=== PATIENT | female | born 1945 | race Caucasian/White ===

== ENCOUNTER 2017-12-14 08:52 | Emergency (ER) | payer OTHER ==
[~2017-12-14] VITALS: Ht 165.1 cm; Wt 120.2 kg
--- NOTE | 2017-12-14 08:52 | NUR ---
PT BIBA AND PLACED IN BED 12.
[2017-12-14 09:02] VITALS: BP 188/91
--- NOTE | 2017-12-14 09:12 | NUR ---
PT BIB EMS FROM [facility] WITH C/O EPITAXIS THIS MORNING; LAST EPISODE ON 12/11/2017 HX; HTN, CHF, A-FIB, GLAUCOMA, OBESITY, ANEMIA, HYPERLIPIDEMIA, GERD RX; LASIX, ASA, SPIRINOLATONE, COREG, TRAMADOL DENIES N/V/D; SKIN IS PINK/WARM/DRY; AAOX4; LUNGS CLEAR BL; HR EVEN AND REGULAR; PT DENIES ANY FEVER, CP, SOB, OR COUGH AT THIS TIME; PATIENT STATES PAIN OF 0/10 AT THIS TIME; VSS; PATIENT POSITIONED FOR COMFORT; HOB ELEVATED; BEDRAILS UP X2; BED DOWN. ER MD MADE AWARE OF PT STATUS.
--- NOTE | 2017-12-14 09:40 | NUR ---
ice pack applied;bleeding has been controlled;will continue to monitor pt.
--- NOTE | 2017-12-14 09:48 | NUR ---
relative at bedside.
[2017-12-14 10:17] LABS: ANION GAP 9.7 (8-16); CARBON DIOXIDE 32.3 mmol/L (21-32); CHLORIDE 106 mmol/L (98-107); CREATININE 1.7 mg/dL (0.6-1.3); GLUCOSE 112 mg/dL (74-106); SODIUM SERUM 144 mmol/L (136-145); UREA NITROGEN, BLOOD 27 mg/dL (7-18)
[2017-12-14 10:23] LABS: PROTHROMBIN TIME 11.3 secs (10.8-13.4)
[2017-12-14 10:34] LABS: ASPARTATE AMINOTRANSFERASE 14 U/L (15-37); TOTAL BILIRUBIN 0.5 mg/dL (0.0-1.0)
[2017-12-14] MEDS ORDERED: cloNIDine 0.1 MG TAB PO ONE (10:35)
[2017-12-14 10:39] LABS: WHITE BLOOD COUNT (AUTO) 6.4 K/uL (4.8-10.8)
[2017-12-14 10:40] LABS: BASOPHILS % (AUTO) 0.6 % (0.0-2.0); EOSINOPHILS # (AUTO) 0.2 K/uL (0-0.4); HEMATOCRIT 32.5 % (36-48); HEMOGLOBIN 10.9 g/dL (12.0-16.0); LYMPHOCYTES # (AUTO) 0.9 K/uL (2.5-16.5); LYMPHOCYTES % (AUTO) 13.6 % (20.5-51.1); MEAN CORPUSCULAR HEMOGLOBIN 32 pg (27-31); MEAN CORPUSCULAR HGB CONC 34 g/dL (33-37); MEAN CORPUSCULAR VOLUME 96 fL (80-94); MONOCYTES # (AUTO) 0.5 K/uL (0.8-1.0); MONOCYTES % (AUTO) 7.4 % (1.7-9.3); NEUTROPHILS # (AUTO) 4.8 K/uL (1.8-7.7); NEUTROPHILS % (AUTO) 75.4 % (42.2-75.2); PLATELET COUNT (AUTO) 182 K/uL (140-450); RED BLOOD CELL COUNT(AUTO) 3.37 MIL/uL (4.20-5.40); RED CELL DISTRIBUTION WIDTH 14.6 % (11.6-13.7)
--- NOTE | 2017-12-14 12:15 | NUR ---
CALLED [facility];SPOKE TO MS TREVINO VALVING MACHINE OPERATOR THAT PT IS FOR DC;THEY SAID THEY DON'T HAVE VEHICLE THAT IS WHEELCHAIR ACCESSIBLE AND IF WE CAN ARRANGE TRANSPORT FOER THE PT;
--- NOTE | 2017-12-14 13:34 | NUR ---
pt resting on bed;nad;will continue to monitor pt;
[2017-12-14 14:48] VITALS: BP 152/83
--- NOTE | 2017-12-14 14:48 | NUR ---
Patient discharged with v/s stable. Written and verbal after care instructions given and explained. Patient alert, oriented and verbalized understanding of instructions. Wheel Chair Assisted with to detention. All questions addressed prior to discharge. ID band removed. Patient advised to follow up with PMD. Rx of given [place] 0.65% nasal spray. Patient educated on indication of medication including possible reaction and side effects. Opportunity to ask questions provided and answered.Transported by Mr hou to [facility];
== END 2017-12-14 14:48 ==
LOC: MED 08:52
DX: R04.0 Epistaxis (principal); I10 Essential (primary) hypertension; K21.9 Gastro-esophageal reflux disease without esophagitis
CPT/HCPCS: 36415; 80053; 85025; 85610; 86886; 86900; 86901; 99284

== ENCOUNTER 2018-07-12 19:24 | Inpatient (IN) | payer OTHER ==
[~2018-07-12] VITALS: Ht 165.1 cm; Wt 133.8 kg
--- NOTE | 2018-07-12 19:24 | NUR ---
PT [facility] BLS. TAKEN TO BED 10
[2018-07-12 19:25] VITALS: BP 192/120
--- NOTE | 2018-07-12 19:28 | NUR ---
Dr. Torres evaluating patient at bedside.
--- NOTE | 2018-07-12 19:30 | NUR ---
PT BIBA FOR SOB STARTING TODAY, PT IS TACHYPNIC AND TACHYCARDIA ON ARRIVAL. RR ARE SHORT, LABORED, BL BS CLEAR . NC APPLIED W/ 3L ON ARRIVAL. PT SPEAKS ONLY A FEW WORDS AT A TIME. PT EXTREMETIES ARE EDMATOUS , +3 PITTING EDEMA TO LEFT HAND AND BL FEET. ER MD AWARE OF PT STATUS WILL CONTINUE W/ ORDERS.
--- NOTE | 2018-07-12 19:38 | NUR ---
RT AT BEDSIDE
[2018-07-12] MEDS ORDERED: CHOL200074 PO (19:56)
[2018-07-12] MEDS ORDERED: SENN8.6T70 PO (19:56)
[2018-07-12] MEDS ORDERED: DEEP SEA (19:56)
[2018-07-12] MEDS ORDERED: TIM.5OS OP (19:56)
[2018-07-12] MEDS ORDERED: CARV6.25 PO (19:56)
[2018-07-12] MEDS ORDERED: FERR325E14 PO (19:56)
[2018-07-12] MEDS ORDERED: LORA10TA19 PO (19:56)
[2018-07-12] MEDS ORDERED: FURO-572 PO (19:56)
[2018-07-12] MEDS ORDERED: DOCU1TAB PO (19:56)
[2018-07-12] MEDS ORDERED: [UNRECOGNIZED DRUG - CODE] TP (19:56)
[2018-07-12] MEDS ORDERED: CALC-1015 PO (19:56)
[2018-07-12] MEDS ORDERED: DEEP SEA SPRAY (19:56)
[2018-07-12] MEDS ORDERED: XALOS OP (19:56)
[2018-07-12] MEDS ORDERED: NAPR-54 PO (19:56)
[2018-07-12] MEDS ORDERED: LACT10SO1 PO (19:56)
[2018-07-12] MEDS ORDERED: ASCO-786 PO (19:56)
[2018-07-12] MEDS ORDERED: ALPOS OP (19:56)
[2018-07-12] MEDS ORDERED: TRAM50TA1 PO (19:56)
[2018-07-12] MEDS ORDERED: DICLOFENAC SODIUM (19:56)
[2018-07-12] MEDS ORDERED: ACET500C86 PO (19:56)
[2018-07-12] MEDS ORDERED: SILV-22 TP (19:56)
[2018-07-12] MEDS ORDERED: AMIO200T5 PO (19:56)
[2018-07-12] MEDS ORDERED: VITA1TAB44 PO (19:56)
[2018-07-12] MEDS ORDERED: FAMO-90 PO (19:56)
--- NOTE | 2018-07-12 20:10 | NUR ---
PLACED PATIENT ON BIPAP 12/6 FIO2-35% DUE TO TACHYPNEA. BS-CRACKLES/CLEAR RR-36BPM HR-108 ABG DONE
[2018-07-12 20:16] LABS: BASOPHILS % (AUTO) 0.3 % (0.0-2.0); EOSINOPHILS # (AUTO) 0.1 K/uL (0-0.4); EOSINOPHILS % (AUTO) 0.9 % (0.0-4.0); HEMATOCRIT 45.9 % (36-48); HEMOGLOBIN 15.2 g/dL (12.0-16.0); LYMPHOCYTES # (AUTO) 0.5 K/uL (2.5-16.5); LYMPHOCYTES % (AUTO) 3.9 % (20.5-51.1); MEAN CORPUSCULAR HEMOGLOBIN 32 pg (27-31); MEAN CORPUSCULAR HGB CONC 33 g/dL (33-37); MEAN CORPUSCULAR VOLUME 95.3 fL (80-94); MONOCYTES # (AUTO) 0.6 K/uL (0.8-1.0); MONOCYTES % (AUTO) 4.5 % (1.7-9.3); NEUTROPHILS # (AUTO) 11.3 K/uL (1.8-7.7); NEUTROPHILS % (AUTO) 90.4 % (42.2-75.2); PLATELET COUNT (AUTO) 183 K/uL (140-450); RED BLOOD CELL COUNT(AUTO) 4.81 MIL/uL (4.20-5.40); RED CELL DISTRIBUTION WIDTH 14.4 % (11.6-13.7); WHITE BLOOD COUNT (AUTO) 12.5 K/uL (4.8-10.8)
--- NOTE | 2018-07-12 20:23 | NUR ---
X-Ray at bedside.
--- NOTE | 2018-07-12 20:32 | NUR ---
PT STATES SHE WANTS TO "GO HOME". SITTING HERSELF UP IN BED, PT INSTRUCTED TO STAY IN BED, CURTAIN OPENED SO STAFF MY SEE PT, WILL CONTINUE TO MONITOR.
[2018-07-12 20:33] LABS: PROTHROMBIN TIME 10.4 secs (10.8-13.4)
[2018-07-12 20:34] LABS: CARBON DIOXIDE 30.5 mmol/L (21-32); CHLORIDE 102 mmol/L (98-107); CREATININE 1.4 mg/dL (0.6-1.3); GLUCOSE 115 mg/dL (74-106); POTASSIUM 4.5 mmol/L (3.5-5.1); SODIUM SERUM 142 mmol/L (136-145); UREA NITROGEN, BLOOD 24 mg/dL (7-18)
[2018-07-12 20:40] LABS: ALBUMIN 3.8 g/dL (3.4-5.0); ASPARTATE AMINOTRANSFERASE 15 U/L (15-37); LIPASE 118 U/L (73-393); TOTAL BILIRUBIN 0.7 mg/dL (0.0-1.0)
--- NOTE | 2018-07-12 21:13 | NUR ---
RT AT BEDSIDE
--- NOTE | 2018-07-12 21:14 | NUR ---
PATIENT REQUESTED BIPAP TO BE TAKEN OFF AND IS ON ROOM AIR AND WANTS TO GO HOME. DR GOMEZ IS AWARE
--- NOTE | 2018-07-12 21:20 | NUR ---
PT NO LONGER ON BI PAP, VSS, NO CHANGE IN RESPIRATORY STATUS.
[2018-07-12] MEDS ORDERED: MORPHINE SULFATE 4 MG/ML SYR IVP ONE (22:40)
--- NOTE | 2018-07-12 23:17 | NUR ---
PT SITTING IN BED, POSITIONED TO COMFORT.
[2018-07-12] MEDS ORDERED: NACL 0.9% 1,000 ML IV ONE (23:45)
[2018-07-12] MEDS ORDERED: LEVOFLOXACIN 750 MG/D5W PREMIX 150 ML IV ONE (23:45)
[2018-07-13] VITALS (7 sets, daily range): BP systolic 98–181; BP diastolic 64–118
--- NOTE | 2018-07-13 00:17 | NUR ---
# 14 FR Urinary catheter inserted utilizing sterile technique. Immediate return of 500 ml YELLOW urine noted. Urine sample collected and sent to lab. Pt tolerated procedure WELL.
[2018-07-13 00:25] LABS: APPEARANCE,URINE CLOUDY (CLEAR); BILIRUBIN,URINE NEGATIVE (NEGATIVE); BLOOD, URINE 2+ (NEGATIVE); COLOR,URINE YELLOW (YELLOW); LEUKOCYTE ESTERASE ,URINE NEGATIVE (NEGATIVE); NITRITE, URINE NEGATIVE (NEGATIVE); UGLUCOSE NEGATIVE (NEGATIVE)
[2018-07-13 00:36] LABS: RBC,URINE 11-20 (MOD) /HPF (0-5); WBC,URINE TOO MANY TO COUNT /HPF (0-5)
--- NOTE | 2018-07-13 00:46 | NUR ---
PT SITTING IN BED , POSITIONED TO COMFORT, NO NEW NEEDS AT THIS TIME.
--- NOTE | 2018-07-13 01:42 | NUR ---
PT REPOSITIONED IN BED, NO NEW NEEDS AT THIS TIME, VSS.
[2018-07-13] MEDS ORDERED: ONDANSETRON 4 MG/2 ML VIAL IM/IVP PRN (01:55)
[2018-07-13] MEDS ORDERED: ACETAMINOPHEN 325 MG TAB PO PRN (01:55)
[2018-07-13] MEDS ORDERED: DOCUSATE SODIUM 100 MG GELCAP PO PRN ×2 (01:55→02:40)
[2018-07-13] MEDS ORDERED: LORazepam 2 MG/ML VIAL IM/IVP PRN (01:55)
[2018-07-13] MEDS ORDERED: MORPHINE SULFATE 2 MG/ML SYR IVP PRN (01:55)
[2018-07-13] MEDS ORDERED: HYDROcodone/APAP 5/325 MG 1 TAB TAB PO PRN (01:55)
--- NOTE | 2018-07-13 02:25 | NUR ---
Patient will be admitted to care of DR STINSON. Admited to TELE. Will go to [facility]. Belongings list completed. Report to FERMÍN VALERIO.
[2018-07-13] MEDS ORDERED: SENNA 8.6 MG TAB PO PRN (02:40)
[2018-07-13] MEDS ORDERED: LACTULOSE 20 GM/30 ML UDC PO PRN (02:40)
[2018-07-13] MEDS ORDERED: cefTRIAXone 1,000 MG VIAL ONE (03:17)
[2018-07-13] MEDS: NACL 0.9% 1,000 ML IV SCH (03:17)
[2018-07-13] MEDS ORDERED: FUROSEMIDE 40 MG/4 ML VIAL IVP SCH (04:00)
--- NOTE | 2018-07-13 04:02 | NUR ---
PT DESATURATING WITH 61% ON 4L/NC, HR-118, RR-36, PUT ON HIGH FOWLERS POSITION, PT HAVING SOB, LABORED BREATHING WITH AUDIBLE WHEEZING AND CRACKLES ON AUSCULTATION, RAPID RESPONSE CALLED, RT EL IN THE ROOM, RT LAWRENCE ON HIS WAY WITH BIPAP, DR COMER AT BEDSIDE WITH NEW ORDERS TO GIVE LASIX AND MORPHINE IVP, MONITORED CLOSELY.
--- NOTE | 2018-07-13 04:15 | NUR ---
PLACED PATIENT ON BIPAP 10/05 RR-12, FIO2-100% DUE TO TACHYPNEA AGAIN HER RESP. RATE-34, LOW PERFUSION SO SAO2 WAS READING LOW AND NOT PICKING UP, FINGERS VERY COLD BS-CRACKLES, NO WHEEZING RR-36BPM HR-114, SAO2- NOW AT 0430 SAO2 IS 99%. DR COMER CAME TO THE BED SIDE AND ORDER LASIX AND RN PLACED WEEMS ROXANA.
[2018-07-13] MEDS: traMADol 50 MG TAB PO PRN (05:52)
--- NOTE | 2018-07-13 06:00 | NUR ---
PT FOUND TRYING TO GET OOB, KEEP ON TAKING OFF GOWN AND TELE PATCH, RISK AND BENEFITS EXPLAINED MULTIPLE TIMES BUT INSISTING TO GET UP, ASSISTED BY 3 PERSON ( 2 DAIRY FARM MANAGER AND AN RN ) TO SIT UP AND DANGLE LEGS ON SIDE OF BED, BUT PT UNABLE TO TOLERATE POSITION AND STARTED TO HAVE SOB, ASSISTED BACK TO BED, POSITION ON FOWLERS POSITION AND TRAMADOL GIVEN FOR BACK PAIN, CONTINUE ON BIPAP, SIDE RAILS UP AND BED ALARM ON, MONITORED CLOSELY.
--- NOTE | 2018-07-13 07:15 | NUR ---
PT SLEEPING, ON BIPAP, NO DISTRESS NOTED, BEDSIDE REPORT GIVEN TO FERMÍN LIAO FOR CONTINUITY OF CARE.
--- NOTE | 2018-07-13 07:16 | NUR ---
RECEIVED FROM THE STRATEGIC SOURCING MANAGER NURSE AT BEDSIDE FOR CONTINUITY OF CARE. PT IS AWAKE AND ORIENTED. PT IS ON A BIPAP. ON TELE, EDEMA AND DRYNESS ON THE EXTREMITIES, INCONTINENT DERMATITIS. LBM 07/12/ OV R AC 20G SL, R WRIST 22G SL. LABS TODAY: BUN AND CREATININE ELEVATED 31/2.0 AND MAG 1.7. WILL NOTIFY MED. DR STINSON ROUNDED ON PT, WILL ORDER CARDIOLOGY CONSULT AND PULMONOLOGY CONSULT. WILL CONTINUE TO MONITOR PT.
[2018-07-13 07:57] LABS: BASOPHILS % (AUTO) 0.1 % (0.0-2.0); EOSINOPHILS % (AUTO) 0.2 % (0.0-4.0); HEMATOCRIT 39.8 % (36-48); HEMOGLOBIN 13.2 g/dL (12.0-16.0); LYMPHOCYTES # (AUTO) 0.4 K/uL (2.5-16.5); LYMPHOCYTES % (AUTO) 2.8 % (20.5-51.1); MEAN CORPUSCULAR HEMOGLOBIN 32 pg (27-31); MEAN CORPUSCULAR HGB CONC 33 g/dL (33-37); MEAN CORPUSCULAR VOLUME 95.5 fL (80-94); MONOCYTES # (AUTO) 0.5 K/uL (0.8-1.0); MONOCYTES % (AUTO) 3.6 % (1.7-9.3); NEUTROPHILS # (AUTO) 13.8 K/uL (1.8-7.7); NEUTROPHILS % (AUTO) 93.3 % (42.2-75.2); PLATELET COUNT (AUTO) 173 K/uL (140-450); RED BLOOD CELL COUNT(AUTO) 4.17 MIL/uL (4.20-5.40); RED CELL DISTRIBUTION WIDTH 14.3 % (11.6-13.7); WHITE BLOOD COUNT (AUTO) 14.8 K/uL (4.8-10.8)
[2018-07-13 07:58] LABS: ANION GAP 15.9 (8-16); CARBON DIOXIDE 25.1 mmol/L (21-32); CHLORIDE 104 mmol/L (98-107); GLUCOSE 126 mg/dL (74-106); SODIUM SERUM 141 mmol/L (136-145); UREA NITROGEN, BLOOD 31 mg/dL (7-18)
[2018-07-13] MEDS ORDERED: HEPARIN PER PHARMACY MC PRN (08:00)
[2018-07-13] MEDS ORDERED: hePARIN / DEXT 5% PREMIX 250 ML IV SCH (08:00)
[2018-07-13 08:06] LABS: MAGNESIUM 1.7 mg/dL (1.8-2.4)
[2018-07-13 08:38] LABS: FREE T4 (FREE THYROXINE) 1.55 ng/dL (0.76-1.46); MAGNESIUM 1.7 mg/dL (1.8-2.4); PHOSPHORUS 3.1 mg/dL (2.5-4.9); THYROID STIMULATING HORMONE 2.01 uIU/mL (0.34-3.74)
--- NOTE | 2018-07-13 08:45 | NUR ---
PATIENT HAS BEEN SCREENED AND CATEGORIZED HIGH NUTRITION RISK. PATIENT WILL BE SEEN WITHIN 1-2 DAYS OF ADMISSION. 07/13/18 07/14/[address]
[2018-07-13] MEDS ORDERED: TIMOLOL OP 0.5% 5 ML BTL OP SCH (09:00)
[2018-07-13] MEDS: CARVEDILOL 6.25 MG TAB PO SCH ×2 (09:00→21:03)
[2018-07-13] MEDS ORDERED: BRIMONIDINE TARTRATE 0.2% OP 5 ML BTL OP SCH (09:00)
[2018-07-13] MEDS: AMIODARONE 200 MG TAB PO SCH (09:00)
[2018-07-13] MEDS ORDERED: FUROSEMIDE 20 MG TAB PO SCH (09:00)
[2018-07-13] MEDS ORDERED: NYSTATIN POW 100 MU/GM 15 GM BTL TP SCH ×2 (09:00)
[2018-07-13 09:27] LABS: PROTHROMBIN TIME 11.6 secs (10.8-13.4)
[2018-07-13] MEDS ORDERED: MAGNESIUM OXIDE 400 MG TAB PO SCH (10:00)
[2018-07-13] MEDS: LORATADINE 10 MG TAB PO SCH (10:02)
[2018-07-13] MEDS: LACTOBACILLUS RHAMNOSUS GG 1 EACH CAP PO SCH (10:03)
[2018-07-13] MEDS: FAMOTIDINE 20 MG TAB PO SCH ×2 (10:03→21:08)
--- NOTE | 2018-07-13 10:10 | NUR ---
ADMINISTERED MORNING MEDS. PT TOLERATED WELL. PT BACK ON BIPAP. HELD ALL BP MEDS. BP LOW 98/64. WILL CONTINUE TO MONITOR PT.
--- NOTE | 2018-07-13 11:59 | NUR ---
ADMISSION CHART REVIEW DONE FAXED INITIAL REVIEW TO [facility] [phone] PHONE [facility] [phone]
--- NOTE | 2018-07-13 12:18 | NUR ---
REMOVED FROM BIPAP TO MASK FOR LUNCH MEAL PLACED ON SUPPLEMENTAL OXYGEN AT 3 LPM VIA NC
[2018-07-13] MEDS ORDERED: MAG SULF 2000 MG/WATER PREMIX 50 ML IV SCH (13:00)
--- NOTE | 2018-07-13 13:02 | NUR ---
ADMINISTERED MAG RIDER. PT TOLERATING WELL. PT FINISHED LUNCH. STILL ON NC. O2 SAT AT 98%. NO SIGNS OF DISTRESS. WILL CONTINUE TO MONITOR PT.
[2018-07-13] MEDS: FUROSEMIDE 40 MG/4 ML VIAL IVP SCH (15:15)
--- NOTE | 2018-07-13 15:30 | NUR ---
RESTING COMFORTABLY. NO SIGNS OF DISTRESS. O2 SAT AT 98%. WILL CONTINUE TO MONITOR PT.
--- NOTE | 2018-07-13 15:50 | NUR ---
07/13/18 RD INITIAL ASSESSMENT COMPLETED PLEASE REFER TO NUTRITION ASSESSMENT UNDER CARE ACTIVITY FOR ESTIMATED NUTRITIONAL NEEDS. 1. CONTINUE CARDIAC DIET TOLERATED. 2. RECOMMEND RENAL DIET TOLERATED. 3. RD TO FOLLOW-UP 3-5 DAYS, MODERATE RISK. JERARDO IRWIN, RD
--- NOTE | 2018-07-13 16:00 | NUR ---
CALLED [facility] AND GAVE REPORT. THEY DON'T HAVE TRANSPORTATION AVAILABLE TODAY. NEED TO ARRANGE TRANSPORT. WILL LET WORKERS COMPENSATION [employer] KNOW. Addendum: 07/13/18 at 1726 by Belia Edge RN WRONG PT. DISREGARD ENTRY
--- NOTE | 2018-07-13 17:42 | NUR ---
DR MORGAN IS HERE TO CONSULT. ORDERED VENOUS DOPPLER TO R/O DVT. WILL PUT IN ORDER FOR MD REQUESTED.
[2018-07-13] MEDS ORDERED: INTERDRY CLOTH TP SCH (19:00)
--- NOTE | 2018-07-13 19:00 | NUR ---
EMPTIED 700ML URINE. SL IV. PLACED INTERDRY CLOTH UNDERNEATH L BREAST. SET UP PT FOR DINNER. PT EATING DINNER NOW. WILL CONTINUE TO MONITOR PT.
--- NOTE | 2018-07-13 19:29 | NUR ---
ENDORSED PT TO THE COKE INSPECTOR NURSE AT BEDSIDE FOR CONTINUITY OF CARE. PT IS IN STABLE CONDITION.
--- NOTE | 2018-07-13 19:30 | NUR ---
ASSUMED CARE OF PATIENT. FAMILY AT BEDSIDE. NO COMPLAINS. STABLE CONDITION. EATING DINNER AT THIS TIME. CALL LIGHT WITHIN REACH. CARE BOARD UPDATED.
--- NOTE | 2018-07-13 20:00 | NUR ---
VITALS SIGNS STABLE. AFEBRILE. PLAN OF CARE DISCUSSED WITH PATIENT AND FAMILY MEMBER, VERBALIZED UNDERSTANDING WELL. CALL LIGHT WITHIN REACH. ADVISED TO DO DEEP BREATHING AND COUGHING EXERCISES, VERBALIZED UNDERSTANDING WELL.
[2018-07-13] MEDS ORDERED: POTASSIUM CHLORIDE 10 MEQ TABER PO ONE (21:00)
[2018-07-13] MEDS ORDERED: LATANOPROST 0.005% OP 2.5 ML BTL OP SCH (21:00)
[2018-07-13] MEDS: MAGNESIUM OXIDE 400 MG TAB PO SCH (21:02)
[2018-07-13] MEDS: RANOLAZINE 500 MG TER PO SCH (21:03)
[2018-07-13] MEDS: POTASSIUM CHLORIDE 10 MEQ TABER PO SCH (21:04)
[2018-07-13] MEDS: BRIMONIDINE TARTRATE 0.2% OP 5 ML BTL BOTH EYES SCH (21:05)
[2018-07-13] MEDS: LATANOPROST 0.005% OP 2.5 ML BTL BOTH EYES SCH (21:07)
--- NOTE | 2018-07-13 21:30 | NUR ---
PATIENT REFUSES TO GO ON BIPAP. ADVISED PATIENT THAT IT IS BENEFICIAL TO USE AT NIGHT, NOT JUST FOR RESPIRATORY BUT OVERALL HEALTH. PATIENT STILL REFUSED. HR 96 SPO2 96 ON 3L/M VIA NASAL CANNULA RR 22. ADVISED WILL CONTINUE TO MONITOR IF APPEARS TO HAVE SOB OR LABORED BREATHING.
[2018-07-14 00:14] VITALS: BP 126/76
[2018-07-14] MEDS: traMADol 50 MG TAB PO PRN ×2 (00:37→22:54)
--- NOTE | 2018-07-14 00:48 | NUR ---
VITAL SIGNS STABLE, AFEBRILE. ASLEEP, EASILY AROUSABLE. PAIN MEDS GIVEN REQUESTED. CALL LIGHT WITHIN REACH.
[2018-07-14] MEDS: NACL 0.9% 1,000 ML IV SCH (01:51)
--- NOTE | 2018-07-14 03:38 | NUR ---
PATIENT ASLEEP BUT APPEARS COMFORTABLE. SPO2 96 AND HEART RATE 90. WILL CONTINUE TO MONITOR PATIENT REFUSED BIPAP
[2018-07-14 03:57] VITALS: BP 150/93
--- NOTE | 2018-07-14 04:05 | NUR ---
REPOSITIONED. NO COMPLAINS. SLEEPING WELL, EASILY AROUSABLE. VITAL SIGNS STABLE. AFEBRILE. CALL LIGHT WITHIN REACH.
[2018-07-14 06:19] LABS: T4 (THYROXINE) 10.9 ug/dL (4.5-12.0)
[2018-07-14 06:59] LABS: BASOPHILS % (AUTO) 0.2 % (0.0-2.0); EOSINOPHILS # (AUTO) 0.2 K/uL (0-0.4); EOSINOPHILS % (AUTO) 1.5 % (0.0-4.0); HEMATOCRIT 34.1 % (36-48); HEMOGLOBIN 11.3 g/dL (12.0-16.0); LYMPHOCYTES # (AUTO) 1.2 K/uL (2.5-16.5); LYMPHOCYTES % (AUTO) 9.6 % (20.5-51.1); MEAN CORPUSCULAR HEMOGLOBIN 32 pg (27-31); MEAN CORPUSCULAR HGB CONC 33 g/dL (33-37); MEAN CORPUSCULAR VOLUME 95.4 fL (80-94); MONOCYTES # (AUTO) 1.1 K/uL (0.8-1.0); NEUTROPHILS # (AUTO) 9.9 K/uL (1.8-7.7); NEUTROPHILS % (AUTO) 79.7 % (42.2-75.2); PLATELET COUNT (AUTO) 143 K/uL (140-450); RED BLOOD CELL COUNT(AUTO) 3.57 MIL/uL (4.20-5.40); RED CELL DISTRIBUTION WIDTH 14.8 % (11.6-13.7); WHITE BLOOD COUNT (AUTO) 12.4 K/uL (4.8-10.8)
--- NOTE | 2018-07-14 07:23 | NUR ---
ENDORSED CARE AT BEDSIDE WITH GRISELDA RN, PATIENT IN STABLE CONDITION.
--- NOTE | 2018-07-14 07:25 | NUR ---
RECEIVED REPORT FROM STOCK REPLENISHER RN. PT IN STABLE CONDITION. RESTING IN BED, NO COMPLAINTS OF PAIN OR DISCOMFORT. SATURATING WELL ON 3L NC. LUNG SOUNDS DIMINISHED. INTERDRY CLOTH UNDER BREASTS IN PLACE. REDNESS ON BILATERAL LEGS. PT STATES SHE IS ABLE TO TRANSFER SELF FROM BED TO WHEELCHAIR. F/C IN PLACE, DRAINING URINE. IV SITE PATENT AND ASYMPTOMATIC. ALL SAFETY PRECAUTIONS IN PLACE, WILL CONTINUE TO MONITOR.
[2018-07-14 07:34] LABS: ANION GAP 8.3 (8-16); CHLORIDE 104 mmol/L (98-107); CREATININE 2.1 mg/dL (0.6-1.3); GLUCOSE 119 mg/dL (74-106); POTASSIUM 4.3 mmol/L (3.5-5.1); SODIUM SERUM 139 mmol/L (136-145); UREA NITROGEN, BLOOD 43 mg/dL (7-18)
[2018-07-14 07:38] LABS: MAGNESIUM 2.8 mg/dL (1.8-2.4); PHOSPHORUS 4.1 mg/dL (2.5-4.9)
[2018-07-14 08:00] VITALS: BP 105/64
--- NOTE | 2018-07-14 08:30 | NUR ---
NOTIFIED THAT MAG LEVEL TODAY IS 2.8.
[2018-07-14] MEDS ORDERED: ENOXAPARIN 30 MG/0.3 ML SYR SUBQ SCH (09:00)
[2018-07-14] MEDS: BRIMONIDINE TARTRATE 0.2% OP 5 ML BTL BOTH EYES SCH ×2 (09:00→20:17)
[2018-07-14] MEDS: MAGNESIUM OXIDE 400 MG TAB PO SCH ×2 (09:00→20:20)
--- NOTE | 2018-07-14 09:22 | NUR ---
BLOOD PRESSURE TAKEN NOW BEFORE SCHEDULED MEDS THAT MAY LOWER BP. CURRENT BP IS 124/62, MAP 86, HR 87.
[2018-07-14] MEDS: TIMOLOL OP 0.5% 5 ML BTL BOTH EYES SCH ×2 (09:33→20:17)
[2018-07-14] MEDS: RANOLAZINE 500 MG TER PO SCH ×2 (09:34→20:14)
[2018-07-14] MEDS: LACTOBACILLUS RHAMNOSUS GG 1 EACH CAP PO SCH (09:35)
[2018-07-14] MEDS: POTASSIUM CHLORIDE 10 MEQ TABER PO SCH ×2 (09:35→20:15)
[2018-07-14] MEDS: FUROSEMIDE 40 MG/4 ML VIAL IVP SCH ×2 (09:35→14:30)
[2018-07-14] MEDS: LORATADINE 10 MG TAB PO SCH (09:35)
[2018-07-14] MEDS: AMIODARONE 200 MG TAB PO SCH (09:36)
[2018-07-14] MEDS: FAMOTIDINE 20 MG TAB PO SCH ×2 (09:36→20:15)
[2018-07-14] MEDS: CARVEDILOL 6.25 MG TAB PO SCH ×2 (09:36→20:15)
--- NOTE | 2018-07-14 09:56 | NUR ---
MAG OXIDE NOT ADMINISTERED DUE TO MAGNESIUM LEVEL OF 2.8 TODAY.
--- NOTE | 2018-07-14 09:58 | NUR ---
BRIMONIDINE OPHTHALMIC NOT AVAILABLE NOW. PHARMACY HAS THE MEDICATION. WILL ADMINISTER WHEN AVAILABLE.
--- NOTE | 2018-07-14 11:17 | NUR ---
NUCLEAR MED HERE TO SENIOR COST ACCOUNTANT PATIENT FOR PULMONARY V/Q SCAN VIA WHEELCHAIR. PT ABLE TO TRANSFER SELF TO WHEELCHAIR WITH ASSIST. MORE SOB NOTED ON EXERTION.
[2018-07-14 12:35] VITALS: BP 143/73
--- NOTE | 2018-07-14 12:35 | NUR ---
PT BACK FROM NUCLEAR MEDICINE STUDY. IN STABLE CONDITION. SOB NOTED UPON TRANSFER FROM WHEELCHAIR TO BED. VITALS TAKEN AND CHARTED.
--- NOTE | 2018-07-14 13:43 | NUR ---
[phone] PHONE SONY [phone] SPOKE WITH SONY FROM [facility]. THEIR IS A PSYCHOLOGY CLINICIAN OVER THE WEEKEND, JUST CALL [phone].
--- NOTE | 2018-07-14 15:05 | NUR ---
PER DR. MORGAN, TITRATE PT TO ROOM AIR. DECREASED O2 NC FROM 3L TO 2L. PT IS SATURATING AT 96%. WILL CONTINUE TO TITRATE DOWN.
[2018-07-14 16:00] VITALS: BP 146/81
--- NOTE | 2018-07-14 16:45 | NUR ---
PT HAS BEEN TITRATED DOWN TO 1L NC. SATURATING AT 95%. WILL CONTINUE TO TITRATE DOWN TOLERATED. PER DR. MORGAN, KEEP O2 ABOVE 90%.
--- NOTE | 2018-07-14 17:10 | NUR ---
RECEIVED PT FROM ED NURSE LOREE. PT IN STABLE CONDITION. NO COMPLAINTS OF PAIN AT THIS TIME. VS STABLE. IV SITE PATENT AND ASYMPTOMATIC. PT IS AMBULATORY, GAIT EVEN AND STEADY. SKIN INTACT. UPDATED BOARD AND INTRODUCED SELF TO PT. ALL SAFETY PRECAUTIONS IN PLACE. WILL CONTINUE TO MONITOR. Addendum: 07/14/18 at 1950 by Carla Cifuentes Meng, RN PLEASE DISREGARD- WRONG PATIENT.
--- NOTE | 2018-07-14 19:20 | NUR ---
ENDORSED PLAN OF CARE TO SURVEILLANCE SUPERVISOR RN AT BEDSIDE. PT IN STABLE CONDITION.
--- NOTE | 2018-07-14 19:21 | NUR ---
RECEIVED PATIENT AWAKE IN HIGH FOWLERS POSITION ON BED. PATIENT AA0X3 WITH F/C IN PLACE. WITH NASAL CANNULA 1 L OF O2. FALL PRECAUTION APPLIED. DISCUSS PLAN OF CARE. CALL LIGHT WITHIN REACH. WILL CONTINUE TO MONITOR.
[2018-07-14 20:00] VITALS: BP 141/74
[2018-07-14] MEDS: LATANOPROST 0.005% OP 2.5 ML BTL BOTH EYES SCH (20:20)
--- NOTE | 2018-07-14 20:43 | NUR ---
AWAKE AND ALERT RESPONSIVE PATIENT REFUSES TO USE BIPAP TO MASK FOR NOCS EXPLAINED PATIENT THAT IN THE EVENT THAT SHE NEEDS TO GO ON TO USE CALL LIGHT WHICH IS WITHIN REACH PLACIDO/RN AT BEDSIDE AND AWARE
--- NOTE | 2018-07-14 21:00 | NUR ---
V/S TAKEN AND RECORDED. SCHEDULE MEDICATION GIVEN TOLERATED WELL. NO S/S OF DISTRESS NOTED AT THIS TIME. CALL LIGHT WITHIN REACH. WILL CONTINUE TO MONITOR.
[2018-07-15] VITALS: BP 116/78
--- NOTE | 2018-07-15 | NUR ---
V/S TAKEN AND RECORDED. SEEN PATIENT IN HIGH FOWLERS POSITION. NO S/S OF DISTRESS NOTED AT THIS TIME. WILL CONTINUE TO MONITOR.
[2018-07-15] MEDS: NACL 0.9% 1,000 ML IV SCH (01:51)
--- NOTE | 2018-07-15 01:54 | NUR ---
PATIENT IN SALINE LOCK.
--- NOTE | 2018-07-15 02:48 | NUR ---
CHECKED PATIENT ASLEEP ON BED IN SEMI -FOWLERS POSITION. [address]. NO S/S OF DISTRESS NOTED. WILL CONTINUE TO MONITOR.
[2018-07-15 04:00] VITALS: BP 143/79
--- NOTE | 2018-07-15 04:30 | NUR ---
AM CARE DONE. REPOSITIONED PATIENT TO HER SIDE. NO S/S OF DISTRESS NOTED. V/S TAKEN AND RECORDED. CALL LIGHT WITHIN REACH.
--- NOTE | 2018-07-15 07:15 | NUR ---
GAVE REPORT TO AM SHIFT RN AT BEDSIDE FOR CONTINUITY OF CARE. PATIENT IN STABLE CONDITION.
--- NOTE | 2018-07-15 07:28 | NUR ---
RECEIVED REPORT FROM FLOOR SUPERVISOR RN. PT IS DROWSY, BUT AROUSABLE BY VOICE. PT IS NON-AMBULATORY. NO COMPLAINTS OF PAIN OR DISCOMFORT AT THIS TIME. BILATERAL LEG 2+ PITTING EDEMA. INCONTINENT DERMATITIS NOTED. LUNG SOUNDS DIMINISHED. SATURATING WELL ON 2L NC, WILL CONTINUE TO TITRATE DOWN TO RA. F/C IN PLACE, DRAINING URINE. INTRODUCED SELF AND UPDATED BOARD. RT AC 20G PATENT AND ASYMPTOMATIC. ALL SAFETY PRECAUTIONS IN PLACE, WILL CONTINUE TO MONITOR.
[2018-07-15 08:00] VITALS: BP 125/68
--- NOTE | 2018-07-15 08:12 | NUR ---
MS HECTOR WAS ON ROOM AIR WHEN I ARRIVED. SHE HAD TAKEN IT OFF TO EAT. HER SATURATIONS WERE 91% ON ROOM AIR. SHE HAD BEEN WEANED DOWN TO 1LPM OVER THE LAST 4 HOURS BY NURSE JACK PER MD REQUEST. WILL RETURN IN 1 HOUR TO MONITOR SPO2 ON 1LPM NASAL CANNULA ONCE PATIENT IS DONE EATING. PATIENT WAS IN NO DISTRESS, VERBALIZED FEELING NO SOB, SATURATIONS WERE AT 91% (GOAAL IS >90%), PULSE IS 86, AND RATE IS 22 WITH DIMINISHED BREATH SOUNDS.
[2018-07-15] MEDS: MAGNESIUM OXIDE 400 MG TAB PO SCH ×2 (09:00→21:43)
[2018-07-15] MEDS ORDERED: FUROSEMIDE 40 MG/4 ML VIAL IVP SCH (09:30)
--- NOTE | 2018-07-15 09:58 | NUR ---
CHECKED IN ON MS. HECTOR. HER O2 SATURATION WAS 92% ON RA. DIMINISHED BUT CLEAR BREATH SOUNDS AND A PULSE OF 90.
[2018-07-15] MEDS ORDERED: APIXABAN 2.5 MG TAB PO SCH ×2 (10:00→21:00)
[2018-07-15] MEDS: TIMOLOL OP 0.5% 5 ML BTL BOTH EYES SCH (10:01)
[2018-07-15] MEDS: BRIMONIDINE TARTRATE 0.2% OP 5 ML BTL BOTH EYES SCH ×2 (10:02→21:42)
[2018-07-15] MEDS: AMIODARONE 200 MG TAB PO SCH (10:03)
[2018-07-15] MEDS: LACTOBACILLUS RHAMNOSUS GG 1 EACH CAP PO SCH (10:03)
[2018-07-15] MEDS: FAMOTIDINE 20 MG TAB PO SCH ×2 (10:03→21:43)
[2018-07-15] MEDS: RANOLAZINE 500 MG TER PO SCH ×2 (10:03→21:44)
[2018-07-15] MEDS: CARVEDILOL 6.25 MG TAB PO SCH ×2 (10:04→21:42)
[2018-07-15] MEDS: LORATADINE 10 MG TAB PO SCH (10:04)
[2018-07-15] MEDS: POTASSIUM CHLORIDE 10 MEQ TABER PO SCH ×2 (10:05→21:43)
[2018-07-15 10:24] LABS: BASOPHILS % (AUTO) 0.2 % (0.0-2.0); EOSINOPHILS # (AUTO) 0.2 K/uL (0-0.4); EOSINOPHILS % (AUTO) 2.5 % (0.0-4.0); HEMATOCRIT 33.5 % (36-48); HEMOGLOBIN 11.1 g/dL (12.0-16.0); LYMPHOCYTES # (AUTO) 0.7 K/uL (2.5-16.5); LYMPHOCYTES % (AUTO) 9.6 % (20.5-51.1); MEAN CORPUSCULAR HEMOGLOBIN 32 pg (27-31); MEAN CORPUSCULAR HGB CONC 33 g/dL (33-37); MEAN CORPUSCULAR VOLUME 95.3 fL (80-94); MONOCYTES # (AUTO) 0.7 K/uL (0.8-1.0); MONOCYTES % (AUTO) 10.1 % (1.7-9.3); NEUTROPHILS # (AUTO) 5.3 K/uL (1.8-7.7); NEUTROPHILS % (AUTO) 77.6 % (42.2-75.2); PLATELET COUNT (AUTO) 145 K/uL (140-450); RED BLOOD CELL COUNT(AUTO) 3.52 MIL/uL (4.20-5.40); RED CELL DISTRIBUTION WIDTH 14.5 % (11.6-13.7); WHITE BLOOD COUNT (AUTO) 6.9 K/uL (4.8-10.8)
[2018-07-15 10:36] LABS: ANION GAP 9.5 (8-16); CARBON DIOXIDE 29.9 mmol/L (21-32); CHLORIDE 104 mmol/L (98-107); CREATININE 1.7 mg/dL (0.6-1.3); GLUCOSE 142 mg/dL (74-106); POTASSIUM 4.4 mmol/L (3.5-5.1); SODIUM SERUM 139 mmol/L (136-145); UREA NITROGEN, BLOOD 40 mg/dL (7-18)
--- NOTE | 2018-07-15 10:39 | NUR ---
SCHEDULED MAGNESIUM NOT GIVEN DUE TO LAST AVAILABLE MG LEVEL BEING ELEVATED AT 2.8
[2018-07-15 12:00] VITALS: BP 140/78
--- NOTE | 2018-07-15 12:10 | NUR ---
HELPED PT SET UP FOOD TRAY AND ADJUST BED. PT IS SATURATING AT 94% ON RA. NO ACUTE DISTRESS NOTED. NO COMPLAINTS OF PAIN OR DISCOMFORT. WILL CONTINUE TO MONITOR.
--- NOTE | 2018-07-15 14:35 | NUR ---
PT'S FAMILY CALLED TO INQUIRE ABOUT PATIENT'S CONDITION. DISCUSSED PLAN OF CARE WITH FAMILY MEMBER AND ANSWERED ALL QUESTIONS. PT IS AWARE.
--- NOTE | 2018-07-15 15:16 | NUR ---
ADJUSTED PATIENT'S POSITIONING IN BED. EXERTIONAL SOB NOTED. PLACED PT ON 1L NC FOR INCREASED WORK OF BREATHING. WILL TITRATE BACK DOWN TO RA.
[2018-07-15 16:00] VITALS: BP 155/88
--- NOTE | 2018-07-15 16:42 | NUR ---
SPO2 IS 93% ON RA. NO SOB NOTED. WILL CONTINUE TO MONITOR.
--- NOTE | 2018-07-15 19:15 | NUR ---
RECEIVED BEDSIDE REPORT FROM RN JACK, PT AWAKE IN BED, ON RA, NO SIGNS OF DISTRESS, WEEMS CATH IN PLACED DRAINING YELLOW URINE, IV IN RIGHT AC 20 G SL , DRESSING INTACT. IV IN RIGHT HAND 22 G, SL , DRESSING INTACT. EXPLAINED PLAN OF CARE UPDATED BOARD, CALL LIGHT WITH IN REACH, BED IN LOWEST POSITION, WILL CONTINUE TO MONITOR.
--- NOTE | 2018-07-15 19:15 | NUR ---
ENDORSED PLAN OF CARE TO GROCERY CLERK STOCKING RN. PT IN STABLE CONDITION.
[2018-07-15 20:00] VITALS: BP 165/91
--- NOTE | 2018-07-15 20:45 | NUR ---
B/P 165/. WILL TREND B/P AND REPORT TO .
[2018-07-15] MEDS: LATANOPROST 0.005% OP 2.5 ML BTL BOTH EYES SCH (21:42)
[2018-07-15] MEDS: ZOLPIDEM 5 MG TAB PO PRN (21:45)
--- NOTE | 2018-07-15 21:45 | NUR ---
PT C/O OF HAVING DIFFICULTY SLEEPING, MEDICATED WITH AMBIEN ACCORDING TO DAVID HUBBARD.
[2018-07-15] MEDS: APIXABAN 2.5 MG TAB PO SCH (21:53)
--- NOTE | 2018-07-15 23:30 | NUR ---
PT ASLEEP IN BED NO SIGNS OF DISTRESS, CALL LIGHT WITHIN REACH, WILL CONTINUE TO MONITOR.
[2018-07-16] VITALS: BP 155/85
--- NOTE | 2018-07-16 01:44 | NUR ---
BP 170/97 HR 91, CALLED DR WATSON, ORDER FOR HYDRALAZINE IVP, WILL FOLLOW WITH MD ORDERS.
[2018-07-16] MEDS ORDERED: hydrALAZINE 20 MG/ML VIAL IVP SCH (02:00)
[2018-07-16] MEDS: NACL 0.9% 1,000 ML IV SCH (02:21)
--- NOTE | 2018-07-16 02:44 | NUR ---
BP 147/89 HR 92 AFTER HYDRALAZINE ADMINISTRATION. WILL CONTINUE TO MONITOR.
[2018-07-16 04:00] VITALS: BP 149/90
--- NOTE | 2018-07-16 04:00 | NUR ---
BP 149/90. WILL CONTINUE TO MONITOR.
--- NOTE | 2018-07-16 05:44 | NUR ---
PT ASLEEP I ELAINE NO SIGNS OF DISTRESS, WILL CONTINUE TO MONITOR.
[2018-07-16 06:47] LABS: BASOPHILS % (AUTO) 0.4 % (0.0-2.0); EOSINOPHILS # (AUTO) 0.2 K/uL (0-0.4); EOSINOPHILS % (AUTO) 2.5 % (0.0-4.0); HEMATOCRIT 35.1 % (36-48); HEMOGLOBIN 11.8 g/dL (12.0-16.0); MEAN CORPUSCULAR HEMOGLOBIN 32 pg (27-31); MEAN CORPUSCULAR HGB CONC 34 g/dL (33-37); MEAN CORPUSCULAR VOLUME 94.9 fL (80-94); MONOCYTES # (AUTO) 0.8 K/uL (0.8-1.0); MONOCYTES % (AUTO) 10.5 % (1.7-9.3); NEUTROPHILS # (AUTO) 5.3 K/uL (1.8-7.7); NEUTROPHILS % (AUTO) 72.6 % (42.2-75.2); PLATELET COUNT (AUTO) 151 K/uL (140-450); RED CELL DISTRIBUTION WIDTH 14.2 % (11.6-13.7); WHITE BLOOD COUNT (AUTO) 7.3 K/uL (4.8-10.8)
--- NOTE | 2018-07-16 07:15 | NUR ---
ENDORSED PT TO DAY SHIFT NURSE PT STABLE.
--- NOTE | 2018-07-16 07:22 | NUR ---
RECEIVED REPORT FROM PULLING UNIT OPERATOR RN. PT IN STABLE CONDITION. SLEEPING IN BED, AROUSABLE BY VOICE. SATURATING WELL ON 2L NC, WILL CONTINUE TO WEAN DOWN TO RA. NO COMPLAINTS OF PAIN OR DISCOMFORT. SKIN INTACT. REDNESS UNDER LEFT BREAST. INTERDRY CLOTH IN PLACE. INCONTINENT DERMATITIS NOTED. F/C IN PLACE, DRAINING URINE. LUNGS SOUNDS DIMINISHED. BILATERAL UPPER AND LOWER EXTREMITY EDEMA NOTED. IV SITE PATENT AND ASYMPTOMATIC. ALL SAFETY PRECAUTIONS IN PLACE, WILL CONTINUE TO MONITOR.
[2018-07-16 07:38] LABS: ANION GAP 9.2 (8-16); CARBON DIOXIDE 32.3 mmol/L (21-32); CHLORIDE 104 mmol/L (98-107); CREATININE 1.5 mg/dL (0.6-1.3); GLUCOSE 113 mg/dL (74-106); POTASSIUM 4.5 mmol/L (3.5-5.1); SODIUM SERUM 141 mmol/L (136-145); UREA NITROGEN, BLOOD 32 mg/dL (7-18)
[2018-07-16 08:00] VITALS: BP 162/91
[2018-07-16] MEDS: TIMOLOL OP 0.5% 5 ML BTL BOTH EYES SCH (09:10)
[2018-07-16] MEDS: RANOLAZINE 500 MG TER PO SCH ×2 (09:11→20:33)
[2018-07-16] MEDS: BRIMONIDINE TARTRATE 0.2% OP 5 ML BTL BOTH EYES SCH ×2 (09:11→20:32)
[2018-07-16] MEDS: FUROSEMIDE 40 MG/4 ML VIAL IVP SCH (09:11)
[2018-07-16] MEDS: AMIODARONE 200 MG TAB PO SCH (09:12)
[2018-07-16] MEDS: MAGNESIUM OXIDE 400 MG TAB PO SCH (09:12)
[2018-07-16] MEDS: LACTOBACILLUS RHAMNOSUS GG 1 EACH CAP PO SCH (09:13)
[2018-07-16] MEDS: FAMOTIDINE 20 MG TAB PO SCH (09:13)
[2018-07-16] MEDS: CARVEDILOL 6.25 MG TAB PO SCH ×2 (09:13→20:39)
--- NOTE | 2018-07-16 09:13 | NUR ---
SCHEDULED MEDS ADMINISTERED AT THIS TIME. PT SEEN TO BE MORE LETHARGIC THAN USUAL BUT IS ABLE TO TAKE ORAL MEDICATIONS WITHOUT PROBLEMS. DENIES PAIN AND DISCOMFORT. DECREASED O2 NC TO 1.5 L AND SATURATING AT 95%. WILL CONTINUE TO MONITOR.
[2018-07-16] MEDS: POTASSIUM CHLORIDE 10 MEQ TABER PO SCH ×2 (09:14→20:34)
[2018-07-16] MEDS: LORATADINE 10 MG TAB PO SCH (09:14)
[2018-07-16] MEDS: APIXABAN 2.5 MG TAB PO SCH ×2 (09:17→20:36)
--- NOTE | 2018-07-16 11:20 | NUR ---
IN ROOM TO DISCUSS PLAN OF CARE WITH PT.
--- NOTE | 2018-07-16 11:52 | NUR ---
I GOT A CALL FROM [facility] SPOKE WITH FAVIAN ASKING FOR IF PATIENT IS D/C TODAY. PER DR SANTIAGO AND DR HOUSTON (RESIDENT) PATIENT IS STAYING FOR IV ABX.
--- NOTE | 2018-07-16 13:50 | NUR ---
DECREASED O2 NC TO 1L/MIN. PT SATURATING AT 95%. WILL CONTINUE TO TITRATE DOWN TO RA.
[2018-07-16] MEDS: traMADol 50 MG TAB PO PRN (14:42)
--- NOTE | 2018-07-16 14:42 | NUR ---
PT COMPLAINING OF MILD BODY PAIN AND STATES THAT TORADOL WORKS FOR HER. ADMINISTERED TORADOL PER MD ORDERS. WILL CONTINUE TO MONITOR.
[2018-07-16 16:00] VITALS: BP 166/102
--- NOTE | 2018-07-16 16:33 | NUR ---
PT RESTING IN BED, AROUSABLE BY VOICE. NO COMPLAINTS OF PAIN OR DISCOMFORT. WILL CONTINUE TO MONITOR.
--- NOTE | 2018-07-16 17:04 | NUR ---
PT STATES THAT THE TORADOL ADMINISTERED AT 1442 RESOLVED HER EARLIER COMPLAINTS OF BODY PAIN.
--- NOTE | 2018-07-16 19:15 | NUR ---
PER NURSE JACK VILLALOBOS, FERMÍN, DR MORGAN STATED TO KEEP ON ROOM AIR AND MAINTAIN SAO2 90% OR BETTER. ON ROOM AIR SAO2-95% HR-92, RR-22, B/S CLEAR
--- NOTE | 2018-07-16 19:15 | NUR ---
ENDORSED PLAN OF CARE TO DIE CASTING MACHINE MAINTAINER RN AT BEDSIDE. PT IN STABLE CONDITION.
--- NOTE | 2018-07-16 19:20 | NUR ---
RECEIVED PT FROM JACK RN PT IS AAOX4 MORBID OBESITY EDEMA ON BLE AND HANDS AT ROOM AIR NOT SOB NOTED HL ON RT HAND AND RT AC PATENT WEEMS CATH DRAINING WELL YELLOW URINE INITIAL ASSESSMENT DONE
[2018-07-16 20:00] VITALS: BP 145/71
[2018-07-16] MEDS: LATANOPROST 0.005% OP 2.5 ML BTL BOTH EYES SCH (21:00)
--- NOTE | 2018-07-16 21:00 | NUR ---
DR MORGAN IS HERE AND SEE THE PT
[2018-07-16] MEDS: ZOLPIDEM 5 MG TAB PO PRN (23:17)
--- NOTE | 2018-07-17 | NUR ---
PT SLEEPING WELL NOT DISTRESS NOTED
[2018-07-17] MEDS: NACL 0.9% 1,000 ML IV SCH (01:51)
--- NOTE | 2018-07-17 04:48 | NUR ---
;SPONGE BATH GIVEN LINEN CHANGED PT WEEMS CATH DRAINING WELL YELLOW URINE HL ON RT AC PATENT PT REPOSITIONED NOT SOB NOTED
--- NOTE | 2018-07-17 06:48 | NUR ---
PT RESTING ON BED NOT SOB NOTED HL ON RT AC AND RT HAND PATENT NOT SOB NOTED REPOSITIONED Q2H PT WILL BE ENDORSED TO DAY SHIFT NURSE FOR CONTINUE CARE
--- NOTE | 2018-07-17 07:20 | NUR ---
RECEIVED REPORT FROM NIGHTSHIFT NURSE AT BEDSIDE. PATIENT IS ASLEEP AT THIS TIME BUT AROUSABLE. PATIENT HAS AN IV NOTED ON RIGHT AC AND RIGHT WRIST RUNNING 10 ML/HR. NO DISTRESS NOTED FROM PATIENT. NO PAIN NOTED. PATIENT PRESENTS IN HIGH FOWLERS POSITION. PATIENT HAS WEEMS CATHETER INSERTED AT THIS TIME. UPDATED BOARD IN PATIENT'S ROOM. LOWERED BED TO LOWEST SETTING. CALL LIGHT WITHIN REACH OF PATIENT. WILL CONTINUE TO MONITOR PATIENT.
[2018-07-17 08:00] VITALS: BP 145/86
[2018-07-17] MEDS ORDERED: FAMOTIDINE 20 MG TAB PO SCH (09:00)
--- NOTE | 2018-07-17 10:04 | NUR ---
SPOKE WITH SONY FROM [facility] AND INFORMED HER ABOUT SNF PLACEMENT. SHE ASKED ME TO FAK HER THE PACKET, WHICH I DID. FAXED CONCURRENT REVIEW TO [facility] INCLUDING THE ORDER [phone] PHONE SONY [phone]
[2018-07-17] MEDS ORDERED: LACT10CA1 PO (10:08)
[2018-07-17] MEDS ORDERED: CARV12.5 PO (10:08)
[2018-07-17] MEDS ORDERED: CEFT1SOL1 IV (10:08)
[2018-07-17] MEDS ORDERED: APIX5TAB PO (10:16)
[2018-07-17] MEDS: LACTOBACILLUS RHAMNOSUS GG 1 EACH CAP PO SCH (10:20)
[2018-07-17] MEDS: CARVEDILOL 6.25 MG TAB PO SCH (10:20)
[2018-07-17] MEDS: LORATADINE 10 MG TAB PO SCH (10:20)
[2018-07-17] MEDS: POTASSIUM CHLORIDE 10 MEQ TABER PO SCH (10:21)
[2018-07-17] MEDS: AMIODARONE 200 MG TAB PO SCH (10:21)
[2018-07-17] MEDS: NYSTATIN 500 MU/5 ML UDC PO SCH ×2 (10:21→13:25)
[2018-07-17] MEDS: BRIMONIDINE TARTRATE 0.2% OP 5 ML BTL BOTH EYES SCH (10:22)
[2018-07-17] MEDS: FUROSEMIDE 40 MG/4 ML VIAL IVP SCH (10:22)
[2018-07-17] MEDS ORDERED: METO5TAB9 PO (10:23)
[2018-07-17] MEDS ORDERED: FURO-570 PO (10:23)
[2018-07-17] MEDS: RANOLAZINE 500 MG TER PO SCH (10:25)
[2018-07-17] MEDS ORDERED: ATOR20TA40 PO (10:25)
--- NOTE | 2018-07-17 10:29 | NUR ---
PATIENT RESTING AT THIS TIME. NO DISTRESS NOTED. WILL CONTINUE TO MONITOR PATIENT.
[2018-07-17] MEDS: APIXABAN 2.5 MG TAB PO SCH (10:38)
[2018-07-17 12:07] LABS: BASOPHILS % (AUTO) 0.4 % (0.0-2.0); EOSINOPHILS # (AUTO) 0.2 K/uL (0-0.4); EOSINOPHILS % (AUTO) 2.2 % (0.0-4.0); HEMATOCRIT 37.6 % (36-48); HEMOGLOBIN 12.8 g/dL (12.0-16.0); LYMPHOCYTES # (AUTO) 0.9 K/uL (2.5-16.5); LYMPHOCYTES % (AUTO) 10.2 % (20.5-51.1); MEAN CORPUSCULAR HEMOGLOBIN 32 pg (27-31); MEAN CORPUSCULAR HGB CONC 34 g/dL (33-37); MEAN CORPUSCULAR VOLUME 94.3 fL (80-94); MONOCYTES % (AUTO) 10.7 % (1.7-9.3); NEUTROPHILS # (AUTO) 6.9 K/uL (1.8-7.7); NEUTROPHILS % (AUTO) 76.5 % (42.2-75.2); PLATELET COUNT (AUTO) 175 K/uL (140-450); RED BLOOD CELL COUNT(AUTO) 3.99 MIL/uL (4.20-5.40); RED CELL DISTRIBUTION WIDTH 14.2 % (11.6-13.7)
--- NOTE | 2018-07-17 12:34 | NUR ---
RECEIVED A CALL FROM SONY FROM [facility]. THE PATIENT HAS BEEN ACCEPTED AT [facility], ROOM [address] UNDER [address] [place]. PHONE REPORT TO [phone]. [facility] WILL CYLINDER BLOCK MECHANIC PATIENT AT 3P.M. I INFORMED DR. HAY AND JEANNINE KOVACSMARKETING FORECASTER NURSE AWARE.
[2018-07-17] MEDS ORDERED: [UNRECOGNIZED DRUG - CODE] PO (12:42)
[2018-07-17 12:57] LABS: ANION GAP 11.6 (8-16); CARBON DIOXIDE 32.5 mmol/L (21-32); CHLORIDE 101 mmol/L (98-107); CREATININE 1.7 mg/dL (0.6-1.3); GLUCOSE 100 mg/dL (74-106); POTASSIUM 5.1 mmol/L (3.5-5.1); SODIUM SERUM 140 mmol/L (136-145); UREA NITROGEN, BLOOD 33 mg/dL (7-18)
--- NOTE | 2018-07-17 13:06 | NUR ---
SPOKE TO [facility]NE HERCULES AND [facility] HERCULES REGARDING PLACEMENT OF PATIENT. FAMILY MEMBERS HAD MANY QUESTIONS OF WHY THAT PLACE WAS CHOSEN. TRIED TO EXPLAIN TO PATIENT'S FAMILY MEMBERS THE REASONING WHY. FAMILY MEMBERS WANT TO SPEAK WITH RYAN SENIOR BIOINFORMATICS SPECIALIST.
--- NOTE | 2018-07-17 13:16 | NUR ---
SPOKE WITH [facility]ES HERCULES AND INFORMED HER THAT THE INSURANCE FOUND THE FACILITY AND MADE THE ARRANGEMENTS. SHE WAS ASKING ABOUT HOW SERIOUS THE INFECTION WAS, SINCE SHE HASN'T SPOKEN WITH ANYONE. I CALLED DR. HAY AND ASKED HIM TO CALL [facility], OF THE [facility], AT [phone].
--- NOTE | 2018-07-17 14:22 | NUR ---
DR HAY SAID HE SPOKE WITH [facility] HERCULES. I CALLED DEW[facility]NE HERCULES, THE [facility], AND GAVE HIM THE ADDRESS AND ROOM NUMBER TO HIM. I CALLED FUENTES AND ALSO TOLD HER THE ROOM NUMBER AT [facility]. I INFORM MOO KOVACS THAT I SPOKE WITH BOTH FUENTES AND DEWAYNE HERCULES. THEY ARE OKAY WITH THE PATIENT BEING TRANSFERED TO [facility].
--- NOTE | 2018-07-17 14:22 | NUR ---
SPOKE TO FERMÍN DEAN FROM [facility]. GAVE REPORT ON PATIENT. GAVE CALL BACK NUMBER FOR ADDITIONAL NUMBERS Addendum: 07/17/18 at 1423 by Renny Villarreal II, RN GAVE CALL BACK NUMBER FOR ANY ADDITIONAL QUESTIONS.
--- NOTE | 2018-07-17 14:46 | NUR ---
REMOVED [employer] CATHETER FROM PATIENT. NO SIGNS OF TRAUMA OR INJURY. WILL CONTINUE TO MONITOR PATIENT.
--- NOTE | 2018-07-17 15:05 | NUR ---
PATIENT ABLE TO URINATE ON BED CASILLAS. WILL CONTINUE TO MONITOR PATIENT.
--- NOTE | 2018-07-17 15:25 | NUR ---
PATIENT SIGNED DISCHARGED INSTRUCTIONS. PATIENT GATHERED ALL BELONGINGS. CUT OFF IDENTIFICATION BANDS. PATIENT LEFT THE UNIT IN WITH [facility] EMPL[facility]YE[facility] IN STABLE CONDITION VIA GURNEY.
== END 2018-07-17 15:25 | DRG 871 ==
LOC: MED 19:24 → MTU 07-13 01:51
PROVIDERS: ADMIT General Practice; ATTEND General Practice
PROC: 5A09357 Assistance with Respiratory Ventilation, Less than 24 Consecutive Hours, Continuous Positive Airway Pressure (ICD-10-PCS; principal; 2018-07-12)
DX: A41.51 Sepsis due to Escherichia coli [E. coli] (principal); I50.43 Acute on chronic combined systolic (congestive) and diastolic (congestive) heart failure; E43 Unspecified severe protein-calorie malnutrition; N17.0 Acute kidney failure with tubular necrosis; J96.01 Acute respiratory failure with hypoxia; N39.0 Urinary tract infection, site not specified; I16.1 Hypertensive emergency; I13.0 Hypertensive heart and chronic kidney disease with heart failure and stage 1 through stage 4 chronic kidney disease, or unspecified chronic kidney disease; B37.0 Candidal stomatitis; Z68.42 Body mass index [BMI] 45.0-49.9, adult; K21.9 Gastro-esophageal reflux disease without esophagitis; E78.5 Hyperlipidemia, unspecified; N18.3 Chronic kidney disease, stage 3 (moderate); I48.2 Chronic atrial fibrillation; E78.00 Pure hypercholesterolemia, unspecified; Z87.891 Personal history of nicotine dependence; Z83.3 Family history of diabetes mellitus; I16.0 Hypertensive urgency; E66.01 Morbid (severe) obesity due to excess calories; G47.33 Obstructive sleep apnea (adult) (pediatric); I34.0 Nonrheumatic mitral (valve) insufficiency; B96.89 Other specified bacterial agents as the cause of diseases classified elsewhere; Z66 Do not resuscitate; R26.81 Unsteadiness on feet
CPT/HCPCS: 36415; 36600; 51702; 71045; 78582; 80048; 80053; 81001; 82140; 82803; 82948; 83036; 83605; 83690; 83735; 83880; 84100; 84436; 84439; 84443; 84479; 84484; 85025; 85379; 85610; 85730; 87040; 87081; 87086; 87186; 93005; 93970; 94660; 96365; 96366; 96375; 97116; 97530; 99285; J0360; J0696; J1650; J1940; J1956; J2270; J3475; J7030; J7060; Q0092